=== PATIENT | female | born 1985 | race Caucasian/White ===

== ENCOUNTER 2019-02-07 22:47 | Emergency (ER) | payer MEDICAID ==
[~2019-02-07] VITALS: Ht 147.3 cm; Wt 60.0 kg
[~2019-02-07 22:47] MED LIST: CLON-528 PO; DOCU100C40 PO; IBUP-1984 PO; LORA-512 PO; MEDR150D9 IM; MELO-83 PO; NAPR-1144 PO; NORCO10T PO; VENL150C50 PO
[2019-02-07 23:10] VITALS: BP 108/70
[2019-02-07] MEDS ORDERED: NAPR-56 PO (23:12)
[2019-02-07] MEDS ORDERED: PENI250T2 PO (23:12)
== END 2019-02-07 23:15 | disposition home or self-care (01) ==
LOC: ER 22:47
DX: S02.5XXA Fracture of tooth (traumatic), initial encounter for closed fracture (principal); G89.29 Other chronic pain; F41.9 Anxiety disorder, unspecified; Z98.890 Other specified postprocedural states; Z56.0 Unemployment, unspecified; Z59.0 Homelessness; Z88.0 Allergy status to penicillin; Z79.899 Other long term (current) drug therapy; X58.XXXA Exposure to other specified factors, initial encounter; Y93.89 Activity, other specified; Y92.89 Other specified places as the place of occurrence of the external cause; Y99.8 Other external cause status; Z88.8 Allergy status to other drugs, medicaments and biological substances
CPT/HCPCS: 99283

== ENCOUNTER 2020-05-28 18:01 | Emergency (ER) | payer MEDICAID ==
[~2020-05-28] VITALS: Ht 147.3 cm; Wt 60.4 kg
[2020-05-28 18:08] VITALS: BP 114/69
[2020-05-28 18:59] LABS: CLARITY,URINE CLEAR (Clear); COLOR,URINE YELLOW (Yellow); GLUCOSE, URINE NEGATIVE (Neg); KETONES,URINE NEGATIVE (Neg); LEUKOCYTE ESTERASE ,URINE NEGATIVE (Neg); NITRITES, URINE NEGATIVE (Neg); OCCULT BLOOD,URINE NEGATIVE (Neg); PH,URINE 5.5 (4.8-8.0); PROTEIN,URINE NEGATIVE (Neg); UROBILINOGEN,URINE 0.2 E.U/dL (0.2-1.0)
[2020-05-28 19:02] LABS: URINE HCG NEGATIVE (NEG)
[2020-05-28 19:04] LABS: UA COLLECTION TYPE CLN CATCH MIDSTREAM
== END 2020-05-28 19:55 | disposition left against medical advice (07) ==
LOC: ER 18:01
DX: N39.0 Urinary tract infection, site not specified (principal); Z53.21 Procedure and treatment not carried out due to patient leaving prior to being seen by health care provider
CPT/HCPCS: 36415; 81003; 81025; 87491